=== PATIENT | female | born 1995 | race Caucasian/White ===

== ENCOUNTER → 2016-10-21 | Outpatient (CLI) | payer BC ==
--- NOTE | 2016-10-21 19:50 | US ---
EXAMINATION TYPE: US pelvic complete DATE OF EXAM: 10/21/2016 6:00 PM COMPARISON: NONE CLINICAL HISTORY: R10.2 Pelvic Pain. TECHNIQUE: Transabdominal (TA) Date of LMP: 10/10/2016 EXAM MEASUREMENTS: Uterus: 7.2 x 2.6 x 4.1 cm Endometrial Stripe: 0.4 cm Right Ovary: 3.0 x 1.5 x 2.3 cm Left Ovary: 1.9 x 1.1 x 1.7 cm 1. Uterus: Anteverted wnl 2. Endometrium: wnl 3. Right Ovary: wnl 4. Left Ovary: wnl 5. Bilateral Adnexa: wnl 6. Posterior cul-de-sac: wnl No evidence for uterine mass. Endometrium is unremarkable. No free fluid. No ovarian or adnexal lucita s seen. IMPRESSION: Normal study.
== END | disposition home or self-care (01) ==
LOC: RADUSMAIN 17:42
PROVIDERS: ATTEND Internal Medicine
DX: R10.2 Pelvic and perineal pain (principal)
CPT/HCPCS: 76856

== ENCOUNTER → 2018-03-09 | Outpatient (CLI) | payer BC ==
--- NOTE | 2018-03-09 10:06 | US ---
EXAMINATION TYPE: US thyroid st tissue head/neck DATE OF EXAM: 03/09/2018 COMPARISON: NONE CLINICAL HISTORY: R94.6 ABNORMAL THYROID FUNCTION TEST. Neck swelling, difficulty swallowing GLAND SIZE: Right Lobe: 4.9 x 1.2 x 1.4 cm Overall Parenchyma: mildly heterogeneous Left Lobe: 4.8 x 1.1 x 1.3 cm Overall Parenchyma: mildly heterogeneous Isthmus Thickness: 0.4 cm NODULES RIGHT: # of nodules measured on right: 0 LEFT: # of nodules measured on left: 0 ISTHMUS: # of nodules measured in the isthmus: 0 Bilateral neck scanned, no evidence of lymphadenopathy. IMPRESSION: Normal thyroid scan
[2018-03-09 11:55] LABS: T4, Free (Free Thyroxine) 0.76 ng/dL (0.78-2.19)
[2018-03-09 18:15] LABS: Thyroid Peroxidase Antibodies 4546.6 U/mL (0.0-60.0)
== END | disposition home or self-care (01) ==
LOC: RADUSWWP 09:19
PROVIDERS: ATTEND Internal Medicine Endocrinology, Diabetes & Metabolism
DX: R94.6 Abnormal results of thyroid function studies (principal); R53.83 Other fatigue
CPT/HCPCS: 36415; 76536; 82024; 82533; 82607; 84146; 84439; 84443; 84481; 86376

== ENCOUNTER → 2018-12-29 | Outpatient (CLI) | payer BC ==
--- NOTE | 2018-12-30 07:19 | NM ---
EXAMINATION TYPE: NM hepatobiliary w EF DATE OF EXAM: 12/30/2018 COMPARISON: NONE HISTORY: Abdominal pain TECHNIQUE: After the intravenous administration of 4.5 mCi Tc 99m Mebrofenin hepatobiliary scintigrap hy is performed. Immediate images post injection. FINDINGS: There is satisfactory initial accumulation of tracer by the liver. The gallbladder is visualized wit hin 52 minutes. The small bowel activity is noted within 12 minutes. At one hour 8 ounces of oral e nsure plus is given to mimic CCK and gallbladder ejection fraction is calculated at 74 %, slightly el evated (normal range is up to 65%). Therefore there is no scintigraphic evidence of cystic or common bile duct obstruction to suggest acute cholecystitis or gallbladder dyskinesia. IMPRESSION: 1. Borderline chronic cholecystitis with delayed visualization of the gallbladder. 2. Slightly elevated ejection fraction of the gallbladder indicative of biliary hyperkinesia.
== END | disposition home or self-care (01) ==
LOC: RADNMMAIN 14:50
PROVIDERS: ATTEND Internal Medicine
DX: K82.8 Other specified diseases of gallbladder (principal)
CPT/HCPCS: 78226; A9537

== ENCOUNTER 2019-05-31 17:17 | Emergency (ER) | payer BC ==
[2019-05-31 17:21] VITALS: PULSE 87; RESP 18; TEMP 97.9
[2019-05-31] MEDS ORDERED: SODIUM CHLORIDE 0.9% 1,000 ML IV STA (17:40)
[2019-05-31] MEDS ORDERED: ONDANSETRON 4 MG/2 ML VIAL IVP STA (17:40)
[2019-05-31 18:23] LABS: Basophils # (A) 0.1 k/uL (0-0.2); Basophils % (A) 1 %; Eosinophils # (A) 0.1 k/uL (0-0.7); Eosinophils % (A) 1 %; HCT 41.7 % (34.0-46.0); HGB 13.9 gm/dL (11.4-16.0); Lymphocytes # (A) 1.6 k/uL (1.0-4.8); Lymphocytes % (A) 18 %; MCH 29.4 pg (25.0-35.0); MCHC 33.3 g/dL (31.0-37.0); MCV 88.3 fL (80.0-100.0); Mean Platelet Volume 6.3; Monocytes # (A) 0.5 k/uL (0-1.0); Monocytes % (A) 6 %; Neutrophils # (A) 6.5 k/uL (1.3-7.7); Neutrophils % (A) 73 %; Platelet Count 299 k/uL (150-450); RBC 4.72 m/uL (3.80-5.40); RDW 12.9 % (11.5-15.5); WBC 8.9 k/uL (3.8-10.6)
[2019-05-31 18:30] LABS: ALT 26 U/L (9-52); AST 21 U/L (14-36); African American GFR (CKD) >90 (>60 ml/min/1.73 sqM); Albumin 4.6 g/dL (3.5-5.0); Alkaline Phosphatase 77 U/L (38-126); Amylase 62 U/L (30-110); Anion Gap 12 mmol/L; Blood Urea Nitrogen 12 mg/dL (7-17); Calcium 9.8 mg/dL (8.4-10.2); Carbon Dioxide 23 mmol/L (22-30); Chloride 107 mmol/L (98-107); Glucose 87 mg/dL (74-99); Non-African American GFR(CKD) >90 (>60 ml/min/1.73 sqM); Potassium 4.3 mmol/L (3.5-5.1); Sodium 142 mmol/L (137-145); Total Bilirubin 0.5 mg/dL (0.2-1.3)
--- NOTE | 2019-05-31 18:34 | ED ---
Abdominal Pain HPI - General Chief Complaint: Abdominal Pain Stated Complaint: lt sided abd pain Time Seen by Provider: 05/31/19 17:21 Source: patient, RN notes reviewed Mode of arrival: ambulatory Limitations: no limitations - History of Present Illness Initial Comments: 23-year-old female presents emergency from chief complaint of left-sided abdominal pain. Patient states that she woke up this pain seemed ER the usual she had associated nausea and headache. 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 She states it did not help she had worsening nausea and which she vomited. Patient states that she is late for her menstrual cycle though she started bleeding today. Patient states that she has been trying. Patient denies any fevers or chills no dysuria denies any diarrhea usual. Patient denies any chest pain or shortness breath. She states the headaches on her right side which is mild in nature. - Related Data Allergies Allergy/AdvReac Type Severity Reaction Status Date / Time latex Allergy Unknown Verified 05/31/19 17:21 Review of Systems ROS Statement: Those systems with pertinent positive or pertinent negative responses have been documented in the HPI. ROS Other: All systems not noted in ROS Statement are negative. Past Medical History Past Medical History: No Reported History History of Any Multi-Drug Resistant Organisms: None Reported Past Surgical History: Cholecystectomy Past Psychological History: Anxiety Smoking Status: Never smoker Past Alcohol Use History: Occasional Past Drug Use History: None Reported General Exam Limitations: no limitations General appearance: alert, in no apparent distress Head exam: Present: atraumatic, normocephalic, normal inspection Eye exam: Present: normal appearance, PERRL, EOMI. Absent: scleral icterus, conjunctival injection, periorbital swelling ENT exam: Present: normal exam, normal oropharynx, mucous membranes moist, TM's normal bilaterally Neck exam: Present: normal inspection, full ROM. Absent: tenderness, meningismus, lymphadenopathy Respiratory exam: Present: normal lung sounds bilaterally. Absent: respiratory distress, wheezes, rales, rhonchi, stridor Cardiovascular Exam: Present: regular rate, normal rhythm, normal heart sounds. Absent: systolic murmur, diastolic murmur, rubs, gallop, clicks GI/Abdominal exam: Present: soft, tenderness (Mild left-sided), normal bowel sounds. Absent: distended, guarding, rebound, rigid Back exam: Absent: CVA tenderness (R), CVA tenderness (L) Neurological exam: Present: alert, oriented X3, CN II-XII intact Skin exam: Present: warm, dry, intact, normal color. Absent: rash Course Vital Signs 05/31/19 05/31/19 05/31/19 17:19 18:31 18:40 Temperature 97.9 F Pulse Rate 87 Respiratory 18 Rate Blood Pressure 136/87 131/90 O2 Sat by Pulse 98 89 L 97 Oximetry Medical Decision Making - Medical Decision Making Ultrasound, labs unremarkable. Urinalysis shows hematuria consistent with her menstrual cycle. Patient feels improved after Toradol patient will be discharged at this time return parameters were discussed. - Lab Data Result diagrams: 05/31/19 18:00 05/31/19 18:00 Lab Results 05/31/19 05/31/19 05/31/19 Range/Units 18:00 18:00 18:50 WBC 8.9 (3.8-10.6) k/uL RBC 4.72 (3.80-5.40) m/uL Hgb 13.9 (11.4-16.0) gm/dL Hct 41.7 (34.0-46.0) % MCV 88.3 (80.0-100.0) fL MCH 29.4 (25.0-35.0) pg MCHC 33.3 (31.0-37.0) g/dL RDW 12.9 (11.5-15.5) % Plt Count 299 (150-450) k/uL Neutrophils % 73 % Lymphocytes % 18 % Monocytes % 6 % Eosinophils % 1 % Basophils % 1 % Neutrophils # 6.5 (1.3-7.7) k/uL Lymphocytes # 1.6 (1.0-4.8) k/uL Monocytes # 0.5 (0-1.0) k/uL Eosinophils # 0.1 (0-0.7) k/uL Basophils # 0.1 (0-0.2) k/uL Sodium 142 (137-145) mmol/L Potassium 4.3 (3.5-5.1) mmol/L Chloride 107 (98-107) mmol/L Carbon Dioxide 23 (22-30) mmol/L Anion Gap 12 mmol/L BUN 12 (7-17) mg/dL Creatinine 0.71 (0.52-1.04) mg/dL Est GFR (CKD-EPI)AfAm >90 (>60 ml/min/1.73 sqM) Est GFR (CKD-EPI)NonAf >90 (>60 ml/min/1.73 sqM) Glucose 87 (74-99) mg/dL Calcium 9.8 (8.4-10.2) mg/dL Total Bilirubin 0.5 (0.2-1.3) mg/dL AST 21 (14-36) U/L ALT 26 (9-52) U/L Alkaline Phosphatase 77 (38-126) U/L Total Protein 8.0 (6.3-8.2) g/dL Albumin 4.6 (3.5-5.0) g/dL Amylase 62 (30-110) U/L Lipase 50 (23-300) U/L HCG, Quant <2.4 mIU/mL Urine Color Light Red Urine Appearance Cloudy H (Clear) Urine pH 6.5 (5.0-8.0) Ur Specific Sterrett 1.031 (1.001-1.035) Urine Protein 2+ H (Negative) Urine Glucose (UA) Negative (Negative) Urine Ketones Trace H (Negative) Urine Blood Moderate H (Negative) Urine Nitrite Negative (Negative) Urine Bilirubin Negative (Negative) Urine Urobilinogen <2.0 (<2.0) mg/dL Ur Leukocyte Esterase Trace H (Negative) Urine RBC >182 H (0-5) /hpf Urine WBC 24 H (0-5) /hpf Ur Squamous Epith Cells 9 H (0-4) /hpf Urine Bacteria Rare H (None) /hpf Urine Mucus Many H (None) /hpf Disposition Clinical Impression: Abdominal pain Disposition: HOME SELF-CARE Condition: Stable Instructions (If sedation given, give patient instructions): Abdominal Pain (ED) Additional Instructions: Please return to the Emergency Department if symptoms worsen or any other concerns. Is patient prescribed a controlled substance at d/c from ED?: No Referrals: Jessica Penaloza MD [Primary Care Provider] - 1-2 days Time of Disposition: 19:37
[2019-05-31 18:47] LABS: HCG,Quantitative Serum <2.4 mIU/mL
[2019-05-31 18:49] VITALS: BP 131/90
[2019-05-31] MEDS ORDERED: KETOROLAC 30 MG/ML 1 ML VIAL IVP STA (18:55)
--- NOTE | 2019-05-31 19:05 | US ---
EXAMINATION TYPE: US transvaginal plus Doppler DATE OF EXAM: 05/31/2019 COMPARISON: None CLINICAL HISTORY: 23-year-old female Left-sided pelvic pain x 1 day. Hx LEEP procedure. G0. TECHNIQUE: Transvaginal (TV). Color Doppler and spectral waveform analysis of the ovarian arteries and veins. Date of LMP: 05/31/2019 FINDINGS: EXAM MEASUREMENTS: Uterus: 8.0 x 4.4 x 3.5 cm Endometrial Stripe: Difficult to distinguish, measured at 0.67 cm Right Ovary: 3.8 x 2.4 x 2.3 cm for a volume of 10.8 mL Left Ovary: 3.2 x 2.5 x 2.0 cm for a volume of 8.1 mL 1. Uterus: Anteverted. Tiny 4 mm and smaller cervical nabothian cysts. 2. Endometrium: Difficult to distinguish, estimated at 7 mm 3. Right Ovary: Anechoic areas seen. Largest measures: 0.9 x 0.8 x 0.7 cm. 4. Left Ovary: Follicles seen. Spectral, color and waveform doppler imaging shows arterial and venous flow within the ovaries. 5. Bilateral Adnexa: Appear wnl 6. Posterior cul-de-sac: Moderate cul-de-sac free fluid, probably physiologic IMPRESSION: 1. Prominent follicular change in the ovaries. No sonographic evidence for ovarian torsion. 2. Moderate cul-de-sac free fluid probably physiologic.
[2019-05-31 19:13] LABS: Appearance,Urine Cloudy (Clear); Bacteria,Urine Rare /hpf; Bilirubin,Urine Negative (Negative); Blood,Urine Moderate (Negative); Color,Urine Light Red; Glucose,Urine (UA) Negative (Negative); Ketones,Urine Trace (Negative); Leukocyte Esterase,Urine Trace (Negative); Mucus,Urine Many /hpf; Nitrite,Urine Negative (Negative); PH, Urine 6.5 (5.0-8.0); Protein,Urine 2+ (Negative); RBC,Urine >182 /hpf (0-5); Specific Gravity,Urine 1.031 (1.001-1.035); Squamous Epithelial Cell,Urine 9 /hpf (0-4); Urobilinogen,Urine <2.0 mg/dL (<2.0)
== END 2019-05-31 19:50 | disposition home or self-care (01) ==
LOC: EC 17:17
DX: R10.9 Unspecified abdominal pain (principal); R31.9 Hematuria, unspecified; R51 Headache; R11.2 Nausea with vomiting, unspecified; Z91.040 Latex allergy status; Z90.49 Acquired absence of other specified parts of digestive tract
CPT/HCPCS: 36415; 80053; 82150; 83690; 85025; 81001; 84702; 87086; 93975; 76830; 99284; 96374; 96375; 96361; J2405; J1885

== ENCOUNTER → 2020-06-05 | Outpatient (CLI) | payer BC ==
--- NOTE | 2020-06-05 15:21 | FL ---
EXAMINATION TYPE: FL hysterosalpingography DATE OF EXAM: 06/05/2020 HISTORY: Infertility. Informed consent was obtained and all the patient's questions were answered. Preliminary film of the pelvis reveals no distinct abnormality. A speculum was introduced and the external cervical os was l ocalize. The external cervical os was cleansed and a Betadine solution on 3 occasions. Hysterosalpi ngography catheter was introduced into the uterus and balloon insufflation device deployed. Approxim ately 10 cc of nonionic contrast ISOVUE 300 was injected in a retrograde manner. 45 SEC FL TIME USED The uterus has a normal size shape and appearance. No persistent uterine filling defects are seen. Both fallopian tubes fill with contrast normally. There is spill of contrast into the peritoneal cav ity bilaterally left greater than right. IMPRESSION: Normal hysterosalpingogram with bilateral spill of contrast into the peritoneal cavity.
== END | disposition home or self-care (01) ==
LOC: RADUSWWP 13:47
PROVIDERS: ATTEND Obstetrics & Gynecology Reproductive Endocrinology
DX: N97.9 Female infertility, unspecified (principal)
CPT/HCPCS: 58340; 74740; Q9967